=== PATIENT | male | born 1960 | race Caucasian/White ===

== ENCOUNTER 2019-06-26 16:03 | Inpatient (IN) | payer BC ==
[~2019-06-26] VITALS: Ht 193 cm; Wt 123.0 kg
[2019-06-26] MEDS ORDERED: cloNIDine HCL 0.1 MG TAB PO ONE (19:15)
[2019-06-26] MEDS ORDERED: cefTRIAXone 1GM/50ML D5W 50 ML IV ONE (22:45)
[2019-06-26] MEDS ORDERED: VANCOMYCIN 1GM/250ML 250 ML IV ONE (22:45)
[2019-06-26 22:54] LABS: Basophils # (auto) 0.1 uL; Basophils % (auto) 1.2 % (0.0-2.0); Eosinophils # (auto) 0.2 uL; Eosinophils % (auto) 2.9 % (0.0-7.0); Hematocrit 41.3 % (41.0-53.0); Hemoglobin 14.8 g/dL (13.5-17.5); Lymphocytes # (auto) 1.6 uL; Lymphocytes % (auto) 21.3 % (10.0-50.0); Mean Corpuscular Hemoglobin 29.9 pg (28.0-32.0); Mean Corpuscular Hgb Conc. 35.8 g/dL (32.0-36.0); Mean Corpuscular Volume 83.7 fL (80.0-100.0); Monocytes # (auto) 0.7 uL; Monocytes % (auto) 9.2 % (0.0-12.0); Neutrophils # (auto) 4.8 uL; Neutrophils % (auto) 65.4 % (37.0-80.0); Nucleated Red Blood Cells % 0.1 %; Platelet Count (auto) 218 10^3/uL (140-450); Red Blood Cells 4.93 10^6/uL (4.5-5.90); Red Cell Distribution Width 13.4 % (11.8-14.3); White Blood Cell 7.3 10^3/uL (4.4-10.8)
[2019-06-26 23:15] LABS: Albumin 3.4 g/dL (3.4-5.0); BUN/Creatinine Ratio 16.3; Calcium 8.5 mg/dL (8.5-10.1); Potassium 3.2 mmol/L (3.5-5.1)
[2019-06-26 23:17] LABS: Bilirubin, Total 0.4 mg/dL (0.2-1.0); Total Protein 7.2 g/dL (6.4-8.2)
[2019-06-27] MEDS ORDERED: HYDROcodone-ACET 5/325MG TAB PO PRN (05:00)
[2019-06-27] MEDS ORDERED: DEXTROSE (50%) 50ML SYRG IV PRN (05:00)
[2019-06-27] MEDS ORDERED: VANCOMYCIN PER PHARMACY IV SCH (05:00)
[2019-06-27] MEDS ORDERED: NITROGLYCERIN 0.4 MG SL TAB SL PRN (05:00)
[2019-06-27] MEDS ORDERED: ACETAMINOPHEN 500 MG TAB PO PRN (05:00)
[2019-06-27] MEDS ORDERED: MORPHINE SULF INJ 2 MG/ML SYRINGE 1ML IV PRN ×2 (05:00)
[2019-06-27] MEDS ORDERED: SOD CHL 0.9%/ KCL 40MEQ 1,000 ML IV ONE (05:45)
[2019-06-27] MEDS ORDERED: metroNIDAZOLE 500MG/100ML 100 ML IV SCH (06:00)
--- NOTE | 2019-06-27 06:15 | NUR ---
[facility] admit from ER JONAH,YULIYA HARVEY admitted to [facility]. Patient oriented to TAMIE MUELLER RN primary RN, unit, room, bed, and unit policies regarding patient care and visiting hours. Patient weighed by bedscale and encouraged to call if they need something. Safety measures in place bed in lowest position, side rails x2 up, call light within reach. All questions and concerns addressed, patient verbalized understanding.
[2019-06-27] MEDS ORDERED: HYDR25TA4 PO (06:32)
[2019-06-27] MEDS ORDERED: LISI40TA PO (06:32)
[2019-06-27] MEDS ORDERED: NIFE30TA76 PO (06:32)
[2019-06-27] MEDS ORDERED: METF-370 PO (06:32)
[2019-06-27] MEDS ORDERED: GABA-339 PO (06:32)
[2019-06-27] MEDS: ACCU-CHEK COMFORT CURVE STRIP VI SCH ×4 (06:56→22:58)
[2019-06-27] MEDS: InsuLIN REG 1unit/0.01ml Soln (100units/ml) SC SCH ×4 (07:04→22:58)
[2019-06-27] MEDS: hydrALAZINE HCL 20 MG/ML VL IV PRN ×2 (07:05→17:36)
--- NOTE | 2019-06-27 07:24 | NUR ---
Opening Note Assumed pt care from [facility] nurse. Pt is a/ox4 with no s/s of distress or SOB. Pt is currently laying in bed with no complaints. Discussed POC with pt and the pending podiatry consultation. Safety measures maintained with call light within reach, bed in lowest position and side rails up. Will continue to monitor for changes q1hr and prn.
[2019-06-27] MEDS: FAMOTIDINE 20 MG TAB PO SCH ×2 (08:53→22:56)
[2019-06-27] MEDS: cefTRIAXone 1GM/50ML D5W 50 ML IV SCH (08:53)
[2019-06-27 09:00] VITALS: BP 146/91
[2019-06-27] MEDS ORDERED: amLODIPine BESYLATE 5 MG TAB PO SCH (10:00)
[2019-06-27 10:04] LABS: Albumin 2.9 g/dL (3.4-5.0); Calcium 8.1 mg/dL (8.5-10.1)
[2019-06-27 10:11] LABS: BUN/Creatinine Ratio 13.3; Bilirubin, Total 0.4 mg/dL (0.2-1.0); Total Protein 6.4 g/dL (6.4-8.2)
[2019-06-27 10:14] LABS: Potassium 2.9 mmol/L (3.5-5.1)
--- NOTE | 2019-06-27 10:16 | NUR ---
Critical Lab Value Potassium of 2.9 reported by Meme in lab. [facility] hospitalist; awaiting call back. Addendum: 06/27/19 at 1041 by EVERT ALMONTE RN RN [facility] hospitalist, orders received for Potassium 40meq PO. Will implement.
[2019-06-27] MEDS ORDERED: POTASSIUM CHL 20 Meq TABLET PO ONE (10:45)
[2019-06-27] MEDS: VANCOMYCIN 1GM/250ML 250 ML IV SCH (11:58)
[2019-06-27 12:14] LABS: Cholesterol 159 mg/dL (< 200); Triglycerides 144 mg/dL (< 150)
[2019-06-27 12:16] LABS: HDL Cholesterol 39 mg/dL (40-59); LDL Cholesterol 104 mg/dL (< 100)
[2019-06-27 13:00] VITALS: BP 145/93
--- NOTE | 2019-06-27 15:20 | NUR ---
Diabetic Education Education regarding DM provided to pt. Topics included the need for insulin, difference between type 1 and type 2, importance of medication management as well as diet and exercise. Pt verbalized to me that he does not check is blood sugars and therefore does not comply with the medication management. Discussed importance of checking sugars and the significants of noncompliant comorbidities. Pt verbalized understanding. Will continue to reinforce throughout care.
[2019-06-27 17:21] VITALS: BP 158/104
--- NOTE | 2019-06-27 17:39 | NUR ---
Blood Glucose Machine Pt used [employer] Ultra 2 Machine at home to check blood sugars.
--- NOTE | 2019-06-27 19:20 | NUR ---
Opening Shift Note Assumed care of patient, awake and alert. No S/S of distress/SOB or pain. Safety measures in place bed in lowest position, side rails x2 up, and call light within reach. Instructed on POC and to call for assist PRN, will continue to monitor for changes Q1hr and PRN.
[2019-06-27 21:29] VITALS: BP 160/92
[2019-06-27] MEDS: GABAPENTIN 300 MG CAP PO SCH (22:57)
[2019-06-28] MEDS: VANCOMYCIN 1GM/250ML 250 ML IV SCH (00:15)
[2019-06-28] MEDS: hydrALAZINE HCL 20 MG/ML VL IV PRN (04:37)
[2019-06-28 04:43] VITALS: BP 163/97
[2019-06-28 06:15] LABS: Basophils # (auto) 0.2 uL; Basophils % (auto) 2.4 % (0.0-2.0); Eosinophils # (auto) 0.2 uL; Eosinophils % (auto) 2.4 % (0.0-7.0); Hematocrit 38.9 % (41.0-53.0); Hemoglobin 14.1 g/dL (13.5-17.5); Lymphocytes % (auto) 15.6 % (10.0-50.0); Mean Corpuscular Hemoglobin 30.2 pg (28.0-32.0); Mean Corpuscular Hgb Conc. 36.3 g/dL (32.0-36.0); Mean Corpuscular Volume 83.1 fL (80.0-100.0); Monocytes # (auto) 0.7 uL; Monocytes % (auto) 10.8 % (0.0-12.0); Neutrophils # (auto) 4.6 uL; Neutrophils % (auto) 68.8 % (37.0-80.0); Nucleated Red Blood Cells % 0.3 %; Platelet Count (auto) 190 10^3/uL (140-450); Red Blood Cells 4.69 10^6/uL (4.5-5.90); Red Cell Distribution Width 13.4 % (11.8-14.3); White Blood Cell 6.6 10^3/uL (4.4-10.8)
[2019-06-28 06:26] LABS: INR 0.93 (0.9-1.15); Partial Thromboplastin Time 25.6 sec (23.64-32.05)
[2019-06-28 06:41] LABS: Potassium 3.4 mmol/L (3.5-5.1)
[2019-06-28 06:51] LABS: Albumin 2.7 g/dL (3.4-5.0); BUN/Creatinine Ratio 13.8; Bilirubin, Total 0.4 mg/dL (0.2-1.0); Calcium 8.1 mg/dL (8.5-10.1); Total Protein 6.3 g/dL (6.4-8.2)
[2019-06-28] MEDS: ACCU-CHEK COMFORT CURVE STRIP VI SCH ×2 (07:01→11:31)
[2019-06-28] MEDS: InsuLIN REG 1unit/0.01ml Soln (100units/ml) SC SCH ×2 (07:01→11:38)
--- NOTE | 2019-06-28 07:37 | NUR ---
Dr Saenz At Bedside MD saw pt. Spoke with pt about importance of maintaining DM regimen and maintaining health. Discussed need to continue antibiotics. Pt stated that he felt that his toe looked "better". discussed with pt that he is clearing him, d/c with PO antibiotics, and would like to follow up with him in his office within a week. Pt verbalized understanding. Will relay to hospitalist.
--- NOTE | 2019-06-28 07:40 | NUR ---
Opening Note Assumed pt care from [facility] nurse. Pt is a/ox4 with no s/s of distress or SOB. PT is currently sitting upright in bed with no complaints. Discussed POC with pt; pt verbalized understanding. Safety measures maintained with call light within reach, bed in lowest position and side rails up. Will continue to monitor for changes q1hr and prn.
[2019-06-28] MEDS: cefTRIAXone 1GM/50ML D5W 50 ML IV SCH (08:43)
[2019-06-28] MEDS: FAMOTIDINE 20 MG TAB PO SCH (08:43)
[2019-06-28] MEDS: GABAPENTIN 300 MG CAP PO SCH (08:44)
[2019-06-28 09:56] VITALS: BP 164/98
[2019-06-28] MEDS ORDERED: NIFEdipine ER 30 MG TAB PO SCH (10:00)
[2019-06-28] MEDS ORDERED: HCTZ 25 MG TAB PO SCH (10:00)
[2019-06-28] MEDS ORDERED: LISINOPRIL 20 MG TAB PO SCH (10:00)
[2019-06-28 11:14] VITALS: BP 164/98
--- NOTE | 2019-06-28 11:40 | NUR ---
IV Removed IV removed from pt's L wrist. Catheter removed fully intact. Site asymptomatic. Pressure applied for 3 minutes; gauze and coban applied. Pt tolerated well.
--- NOTE | 2019-06-28 11:54 | NUR ---
Pt D/C'ed Pt d/c'ed from unit accompanied by his . Pt ambulated off unit with all belongings, IV removed, pt has all prescriptions as well as education material. All questions were answered.
== END 2019-06-28 11:54 | disposition home or self-care (01) | DRG 603 ==
LOC: ER 16:03 → OVERFLOW 16:04 → EAST 06-27 06:15
PROVIDERS: ADMIT Nurse Practitioner Acute Care; ATTEND Family Medicine
DX: L03.032 Cellulitis of left toe (principal); E11.621 Type 2 diabetes mellitus with foot ulcer; I12.9 Hypertensive chronic kidney disease with stage 1 through stage 4 chronic kidney disease, or unspecified chronic kidney disease; E11.22 Type 2 diabetes mellitus with diabetic chronic kidney disease; N18.3 Chronic kidney disease, stage 3 (moderate); L97.529 Non-pressure chronic ulcer of other part of left foot with unspecified severity; E11.21 Type 2 diabetes mellitus with diabetic nephropathy; E11.40 Type 2 diabetes mellitus with diabetic neuropathy, unspecified; E66.9 Obesity, unspecified; Z96.659 Presence of unspecified artificial knee joint; E87.6 Hypokalemia; Z79.899 Other long term (current) drug therapy; Z98.1 Arthrodesis status; Z72.89 Other problems related to lifestyle; Z79.84 Long term (current) use of oral hypoglycemic drugs; Z91.14 Patient's other noncompliance with medication regimen; Z68.33 Body mass index [BMI] 33.0-33.9, adult; Z88.5 Allergy status to narcotic agent
CPT/HCPCS: 36415; 73700; 80053; 80061; 82962; 83036; 85025; 85610; 85730; 87040; 93926; 96365; 96366; 96367; G0378; J0696; J1815; J3490

== ENCOUNTER → 2019-09-07 | Day surgery (SDC) | payer BC ==
[2019-09-01 15:03] LABS: Urine Bacteria None Seen /hpf (None Seen)
[2019-09-01 15:58] LABS: INR 0.99 (0.9-1.15); Partial Thromboplastin Time 25.6 sec (23.64-32.05)
[2019-09-01 16:04] LABS: Basophils # (auto) 0 uL; Basophils % (auto) 0.8 % (0.0-2.0); Eosinophils # (auto) 0.1 uL; Eosinophils % (auto) 2.1 % (0.0-7.0); Hematocrit 39.8 % (41.0-53.0); Lymphocytes # (auto) 1.2 uL; Lymphocytes % (auto) 20.5 % (10.0-50.0); Mean Corpuscular Hemoglobin 30.5 pg (28.0-32.0); Mean Corpuscular Hgb Conc. 35.3 g/dL (32.0-36.0); Mean Corpuscular Volume 86.4 fL (80.0-100.0); Monocytes # (auto) 0.5 uL; Monocytes % (auto) 9.2 % (0.0-12.0); Neutrophils # (auto) 3.8 uL; Neutrophils % (auto) 67.4 % (37.0-80.0); Nucleated Red Blood Cells % 0.2 %; Platelet Count (auto) 214 10^3/uL (140-450); Red Cell Distribution Width 13.4 % (11.8-14.3); White Blood Cell 5.7 10^3/uL (4.4-10.8)
[2019-09-01 16:08] LABS: Albumin 3.7 g/dL (3.4-5.0); Calcium 8.8 mg/dL (8.5-10.1); Potassium 4.1 mmol/L (3.5-5.1)
[2019-09-01 16:14] LABS: BUN/Creatinine Ratio 24.2; Bilirubin, Total 0.2 mg/dL (0.2-1.0); Total Protein 7.1 g/dL (6.4-8.2)
[2019-09-01 17:24] LABS: Urine Blood Negative /uL (Negative); Urine Specific Gravity 1.013 (1.001-1.035)
[~2019-09-07] VITALS: Ht 193 cm; Wt 122.5 kg
[~2019-09-07] MED LIST: GABA-339 PO; GLIP5TAB12 PO; HYDR25TA4 PO; LISI40TA PO; METF-370 PO; MIDAZOLAM HCL 1MG/1ML-2 ML VIAL ONE; NIFE30TA76 PO; ONDANSETRON HCL 4 MG/2 ML VIAL IV PRN; PROPOFOL 10 MG/ML 20 ML IV ONE; ROPIVACAINE 0.5% (5MG/ML) 20ML AMPULE IJ ONE; ceFAZolin 1GM/50ML 50 ML IV ONE; ePHEDrine SULFATE 50 MG/ML AMP IV PRN; fentaNYL CITRATE 100 MCG/2 ML VL IV PRN; fentaNYL CITRATE 100 MCG/2 ML VL ONE; hydrALAZINE HCL 20 MG/ML VL IV PRN
[2019-09-07 09:52] VITALS: BP 151/79
== END | disposition home or self-care (01) ==
LOC: SUR 06:44
PROVIDERS: ATTEND Podiatrist Foot & Ankle Surgery
DX: M20.42 Other hammer toe(s) (acquired), left foot (principal); E11.621 Type 2 diabetes mellitus with foot ulcer; L97.528 Non-pressure chronic ulcer of other part of left foot with other specified severity; I10 Essential (primary) hypertension; E66.9 Obesity, unspecified; Z79.899 Other long term (current) drug therapy; Z79.82 Long term (current) use of aspirin; Z88.8 Allergy status to other drugs, medicaments and biological substances; Z90.49 Acquired absence of other specified parts of digestive tract; Z98.890 Other specified postprocedural states; Z68.32 Body mass index [BMI] 32.0-32.9, adult; Z79.84 Long term (current) use of oral hypoglycemic drugs
CPT/HCPCS: 28285; 36415; 80053; 81001; 82962; 85025; 85610; 85730; 93005; J0690; J2250; J2704; J2795; J3010